=== PATIENT | female | born 1980 | race Caucasian/White ===

== ENCOUNTER 2017-09-22 09:40 | Observation (INO) | payer BC, OTHER ==
[2017-09-22 09:47] VITALS: BMI 25.6
--- NOTE | 2017-09-22 09:53 | PDOC ---
Attending Attestation - Physicial Exam PE: 09/22/17 11:12 Agree with resident exam. Patient appears uncomfortable. Abdomen is soft, non tender and non distended. + L sided CVA tederness. - Medical Decision Making 09/22/17 11:18 Pt presents to the ED complaining of L flank pain along with severe nausea and vomiting. Differential includes renal stone, less likely pyelonephritis, less likely muscular pain, less likely diverticulitis or ectopic . Will check labs and give Iv nausea and pain control. Will check labs and CT abdomen pelvis to rule out nephrolithiasis. <Tiesha Smith - Last Filed: 09/22/17 11:12> - HPI HPI: 09/22/17 10:44 The patient is a 37 year old female with no significant PMH presenting with left sided flank pain and multiple episodes of nonbloody, nonbilious vomit since 5AM this morning. Patient describes the left sided flank pain as sudden onset, sharp, with radiation to the front of her abdomen. The patient denies similar symptoms in the past. Patient denies history of kidney stones. Patient denies fever, chills, diarrhea and constipation. Denies dysuria, frequency, urgency and hematuria. Allergies: fish, oranges, mushrooms, peanuts Past surgical history: None reported. Social history: No reported alcohol, drug, or cigarette use. PCP: Dr. Reynaga - Medical Decision Making 09/22/17 16:40 Imaging: Spiral-renal stone CT Reported by: Dr. Romano Impression: 5 mm obstructing stone at the left ureterovesical junction resulting in mild left renal hydrouteronephrosis. No gross renal stone is identified bilaterally. <Nguyen Roe - Last Filed: 09/22/17 16:41>
[2017-09-22] MEDS ORDERED: morphine CARPU-JECT 4 MG/1 ML DISP.SYRIN IVPUSH ONE ×4 (09:59→17:35)
[2017-09-22] MEDS ORDERED: KETOROLAC TROMETHAMINE 30 MG/1 ML VIAL IVPUSH ONE (09:59)
[2017-09-22] MEDS ORDERED: ONDANSETRON 4 MG/2 ML VIAL IVPUSH ONE ×2 (09:59→10:39)
[2017-09-22] MEDS ORDERED: morphine SULFATE 4 MG/ML VIAL ONE ×4 (10:00→17:40)
[2017-09-22] MEDS ORDERED: KETOROLAC TROMETHAMINE 30 MG/1 ML VIAL ONE (10:01)
[2017-09-22] MEDS ORDERED: ONDANSETRON 4 MG/2 ML VIAL ONE ×2 (10:01→10:42)
[2017-09-22 10:21] LABS: HEMATOCRIT 38.1 % (32.4-45.2); HEMOGLOBIN 12.9 GM/dL (10.7-15.3); MCH 29.3 pg (25.7-33.7); MCHC 33.8 g/dl (32.0-36.0); MEAN CELL VOLUME 86.7 fl (80-96); MEAN PLT VOLUME 8.9 fl (7.5-11.1); PLATELET COUNT 316 K/MM3 (134-434); RBC 4.39 M/mm3 (3.60-5.2); RDW 13.4 % (11.6-15.6); WHITE BLOOD COUNT 9.4 K/mm3 (4.0-10.0)
[2017-09-22 11:03] LABS: ALBUMIN 4.1 g/dl (3.4-5.0); ALK PHOS 78 U/L (45-117); ANION GAP 10 (8-16); BILIRUBIN,TOTAL 0.6 mg/dL (0.2-1.0); BLOOD UREA NITROGEN 19 mg/dL (7-18); CALCIUM 9.1 mg/dL (8.5-10.1); CHLORIDE 104 mmol/L (98-107); CO2 25 mmol/L (21-32); CREATININE 0.8 mg/dL (0.55-1.02); GLUCOSE,RANDOM 138 mg/dL (74-106); POTASSIUM 4.1 mmol/L (3.5-5.1); SGOT/AST 16 U/L (15-37); SGPT/ALT 28 U/L (12-78); SODIUM 139 mmol/L (136-145); TOT PROT 7.5 g/dl (6.4-8.2)
--- NOTE | 2017-09-22 11:14 | PDOC ---
History of Present Illness <Tiesha Smith - Last Filed: 09/22/17 13:41> - General History Source: Patient Exam Limitations: No Limitations - History of Present Illness Initial Comments: 09/22/17 11:04 Patient is a 37F with history of bilateral tubal ligation 1 year ago here today complaining of sudden onset left sided flank pain with associated nausea, vomiting. Patient denies history of kidney stones. Denies dysuria and blood in urine. Last bowel movement yesterday. Patient states that last bowel movement was yesterday. Denies fevers, chills. Last menstrual period 09/06. Patient states that she just can't get comfortable. <Gomez Herrera - Last Filed: 09/22/17 19:34> - General Chief Complaint: Pain Stated Complaint: ABD PAIN Time Seen by Provider: 09/22/17 09:49 Past History <Tiesha Smith - Last Filed: 09/22/17 13:41> - Past Medical History Asthma: No Cancer: No Cardiac Disorders: No COPD: No DVT: No Diabetes: No HTN: Yes (PREECLAMPSIA WITH PREVIOUS ) Seizures: No Thyroid Disease: No - Surgical History Abdominal Surgery: Yes (tubal ligation) - Reproductive History (#): 1 Para: 2 Cervical CA: No Dysfunctional Uterine Bleeding: No Ectopic : No Endometrial CA: No Polycystic Ovaries: No Therapeutic (s) & number: No Tubal Ligation: No Spontaneous : 0 - Suicide/Smoking/Psychosocial Hx Smoking Status: No Smoking History: Never smoked Have you smoked in the past 12 months: No Number of Cigarettes Smoked Daily: 0 Information on smoking cessation initiated: No Hx Alcohol Use: No Drug/Substance Use Hx: No Substance Use Type: None Hx Substance Use Treatment: No <Gomez Herrera - Last Filed: 09/22/17 19:34> - Past Medical History Allergies/Adverse Reactions: Allergies Allergy/AdvReac Type Severity Reaction Status Date / Time fish derived Allergy Unknown Itching Verified 09/22/17 09:43 ORANGES Allergy Severe Difficulty Uncoded 09/22/17 09:43 Breathing mushrooms Allergy Mild Rash Uncoded 09/22/17 09:43 peanuts AdvReac Unknown Itching Uncoded 09/22/17 09:43 Home Medications: Ambulatory Orders NK [No Known Home Medication] 09/22/17 Review of Systems - Review of Systems Comments:: 09/22/17 11:06 GENERAL/CONSTITUTIONAL: No fever or chills. No weakness. HEAD, EYES, EARS, NOSE AND THROAT: No change in vision. No sore throat. CARDIOVASCULAR: No chest pain or shortness of breath RESPIRATORY: No cough, wheezing, or hemoptysis. GASTROINTESTINAL: +nausea, +vomiting. Negative diarrhea or constipation. GENITOURINARY: No dysuria, frequency, or change in urination. MUSCULOSKELETAL: No joint or muscle swelling or pain. No neck or back pain. SKIN: No rash NEUROLOGIC: No headache, vertigo, loss of consciousness, or change in strength/ sensation. ENDOCRINE: No increased thirst. No abnormal weight change HEMATOLOGIC/LYMPHATIC: No anemia, easy bleeding, or history of blood clots. ALLERGIC/IMMUNOLOGIC: No hives or skin allergy. <Gomez Herrera - Last Filed: 09/22/17 19:34> *Physical Exam - Vital Signs Last Vital Signs Temp Pulse Resp BP Pulse Ox 98.2 F 54 L 17 117/71 100 09/22/17 12:37 09/22/17 12:37 09/22/17 12:37 09/22/17 12:37 09/22/17 12:37 <Tiesha Smith - Last Filed: 09/22/17 13:41> - Vital Signs Last Vital Signs Temp Pulse Resp BP Pulse Ox 97.6 F 52 L 18 114/56 100 09/22/17 09:45 09/22/17 09:45 09/22/17 09:45 09/22/17 09:45 09/22/17 09:45 - Physical Exam Comments: 09/22/17 11:08 GENERAL: Awake, alert, and fully oriented, in acute distress, rolling in bed HEAD: No signs of trauma, normocephalic, atraumatic EYES: PERRLA, EOMI, sclera anicteric, conjunctiva clear ENT: Auricles normal inspection, hearing grossly normal, nares patent, oropharynx clear without exudates. Moist mucosa NECK: Normal ROM, supple, no lymphadenopathy, JVD, or masses LUNGS: No distress, speaks full sentences, clear to auscultation bilaterally HEART: Regular rate and rhythm, normal S1 and S2, no murmurs, rubs or gallops, peripheral pulses normal and equal bilaterally. ABDOMEN: +left sided CVA tenderness, normoactive bowel sounds. No guarding, no rebound. No masses EXTREMITIES: Normal inspection, Normal range of motion, no edema. No clubbing or cyanosis. NEUROLOGICAL: Cranial nerves II through XII grossly intact. Normal speech, no focal sensorimotor deficits SKIN: Warm, Dry, normal turgor, no rashes or lesions noted. <Gomez Herrera - Last Filed: 09/22/17 19:34> ED Treatment Course - LABORATORY CBC & Chemistry Diagram: 09/22/17 10:11 09/22/17 10:11 - ADDITIONAL ORDERS Additional order review: Laboratory Results 09/22/17 09/22/17 09/22/17 12:30 10:11 10:11 Sodium 139 Potassium 4.1 Chloride 104 Carbon Dioxide 25 Anion Gap 10 BUN 19 H Creatinine 0.8 Creat Clearance w eGFR > 60 Random Glucose 138 H Calcium 9.1 Total Bilirubin 0.6 AST 16 ALT 28 Alkaline Phosphatase 78 Total Protein 7.5 Albumin 4.1 Serum , Qual Negative Urine Color Yellow Urine Appearance Slcloudy Urine pH 5.0 Ur Specific [place] 1.027 Urine Protein Negative Urine Glucose (UA) Negative Urine Ketones 2+ H Urine Blood Negative Urine Nitrite Negative Urine Bilirubin Negative Urine Urobilinogen Negative Ur Leukocyte Esterase Negative 09/22/17 10:11 RBC 4.39 MCV 86.7 MCHC 33.8 RDW 13.4 D MPV 8.9 - Medications Given in the ED: ED Medications Discontinued Medications Generic Name Dose Route Start Last Admin Trade Name Kemq PRN Reason Stop Dose Admin Ketorolac Tromethamine 30 mg 09/22/17 09:59 09/22/17 10:17 Toradol Injection - IVPUSH 09/22/17 10:00 30 mg ONCE ONE Administration Morphine Sulfate 4 mg 09/22/17 09:59 09/22/17 10:16 Morphine Injection - IVPUSH 09/22/17 10:00 4 mg ONCE ONE Administration Morphine Sulfate 4 mg 09/22/17 10:39 09/22/17 10:51 Morphine Injection - IVPUSH 09/22/17 10:40 4 mg ONCE ONE Administration Morphine Sulfate 4 mg 09/22/17 12:51 09/22/17 13:01 Morphine Injection - IVPUSH 09/22/17 12:52 4 mg ONCE ONE Administration Ondansetron HCl 4 mg 09/22/17 09:59 09/22/17 10:17 Zofran Injection IVPUSH 09/22/17 10:00 4 mg ONCE ONE Administration Ondansetron HCl 4 mg 09/22/17 10:39 09/22/17 10:51 Zofran Injection IVPUSH 09/22/17 10:40 4 mg ONCE ONE Administration Oxycodone/Acetaminophen 1 combo 09/22/17 12:56 09/22/17 13:02 Percocet 5/325 - PO 09/22/17 12:57 Not Given ONCE ONE <Tiesha Smith - Last Filed: 09/22/17 13:41> - LABORATORY CBC & Chemistry Diagram: 09/22/17 10:11 09/22/17 10:11 - ADDITIONAL ORDERS Additional order review: Laboratory Results 09/22/17 10:11 Serum , Qual Negative 09/22/17 10:11 RBC 4.39 MCV 86.7 MCHC 33.8 RDW 13.4 D MPV 8.9 - Medications Given in the ED: ED Medications Discontinued Medications Generic Name Dose Route Start Last Admin Trade Name Freq PRN Reason Stop Dose Admin Ketorolac Tromethamine 30 mg 09/22/17 09:59 09/22/17 10:17 Toradol Injection - IVPUSH 09/22/17 10:00 30 mg ONCE ONE Administration Morphine Sulfate 4 mg 09/22/17 09:59 09/22/17 10:16 Morphine Injection - IVPUSH 09/22/17 10:00 4 mg ONCE ONE Administration Morphine Sulfate 4 mg 09/22/17 10:39 09/22/17 10:51 Morphine Injection - IVPUSH 09/22/17 10:40 4 mg ONCE ONE Administration Ondansetron HCl 4 mg 09/22/17 09:59 09/22/17 10:17 Zofran Injection IVPUSH 09/22/17 10:00 4 mg ONCE ONE Administration Ondansetron HCl 4 mg 09/22/17 10:39 09/22/17 10:51 Zofran Injection IVPUSH 09/22/17 10:40 4 mg ONCE ONE Administration <Gomez Herrera - Last Filed: 09/22/17 19:34> Medical Decision Making - Medical Decision Making 09/22/17 11:14 Patient is a 37F with history of BTL here today with flank pain. Exam and history consistent with kidney stone. Vital signs normal and stable. Will evaluate with cbc, cmp, ua/uc, spiral ct. Given morphine, zofran and toradol. 09/22/17 13:33 Laboratory Tests 09/22/17 09/22/17 09/22/17 10:11 10:11 10:11 WBC 9.4 Hgb 12.9 Plt Count 316 D BUN 19 H Creatinine 0.8 Serum , Qual Negative Urine Ketones Urine Nitrite Ur Leukocyte Esterase 09/22/17 12:30 WBC Hgb Plt Count BUN Creatinine Serum , Qual Urine Ketones 2+ H Urine Nitrite Negative Ur Leukocyte Esterase Negative CBC normal. CMP reassuring. UA shows ketones no blood. CT shows 5mm obstructing stone. Admitted for pain control to obs. <Gomez Herrera - Last Filed: 09/22/17 19:34> *DC/Admit/Observation/Transfer - Discharge Dispostion Decision to Admit order: Yes <Tiesha Smith - Last Filed: 09/22/17 13:41> <Gomez Herrera - Last Filed: 09/22/17 19:34> Diagnosis at time of Disposition: Renal stone - Discharge Dispostion Condition at time of disposition: Good
[2017-09-22 12:50] LABS: URINE APPEARANCE SLCLOUDY; URINE BILIRUBIN NEGATIVE (<2.0 mg/dL); URINE COLOR YELLOW; URINE GLUCOSE (UA) NEGATIVE (NEGATIVE); URINE KETONE 2+ (NEGATIVE); URINE LEUK ESTERASE NEGATIVE (NEGATIVE); URINE NITRITE NEGATIVE (NEGATIVE); URINE PROTEIN NEGATIVE (NEGATIVE); URINE UROBILINOGEN NEGATIVE mg/dL (0.2-1.0)
[2017-09-22] MEDS ORDERED: MORPHINE SULFATE 2 MG/ML VIAL IVPUSH PRN (18:48)
[2017-09-22] MEDS: SODIUM CHLORIDE 1,000 ML IV SCH (19:35)
--- NOTE | 2017-09-22 20:30 | HP ---
CHIEF COMPLAINT: Left Flank Pain, Nausea and Vomiting PCP: Dr. Reynaga HISTORY OF PRESENT ILLNESS: 37 y/o young woman with no significant medical history. Who presents to the ED with L- flank pain, N/V x today. Patient reports the pain started in her L- flank then radiated to her abdomen and down her left leg. She describes the pain as " severe back labor". She reports taking Motrin with no relief. Patient denies fever, chills, SOB, CP, palpitations, diarrhea, constipation, dysuria ER course was notable for: (1) spiral CT- 5mm obstructing stone in L- UVJ (2) UA- +2 ketones (3) Recent Travel: None PAST MEDICAL HISTORY: See HPI PAST SURGICAL HISTORY: C- Section x2 Tubal Ligation Social History: Smoking: Never Alcohol: Denies Drugs: Denies Family History: Father:Renal Calculi Sister: Renal Calculi Allergies fish derived Allergy (Unknown, Verified 09/22/17 09:43) Itching PATIENT STATES THAT SHE IS NOT AWARE OF WHAT THE REACTION WOULD BE WITH THIS FISH, STATES THAT IT IS SOME TYPE OF EXOTIC FISH AND SHE WAS ONLY MADE AWARE OF THE ALLERGY THROUGH ALLERGY TESTING ORANGES Allergy (Severe, Uncoded 09/22/17 09:43) Difficulty Breathing PATIENT STATES THAT THIS IS AN AIR BORN ALLERGY AND THAT HER THROAT CLOSES mushrooms Allergy (Mild, Uncoded 09/22/17 09:43) Rash peanuts Adverse Reaction (Unknown, Uncoded 09/22/17 09:43) Itching PATIENT STATES THAT SHE REINTRODUCED PEANUTS TO HER DIET A FEW YEARS AGO AND HAS NOT HAD ANY FURTHER REACTIONS HOME MEDICATIONS: Home Medications Medication Instructions Recorded NK [No Known Home Medication] 09/22/17 REVIEW OF SYSTEMS CONSTITUTIONAL: loss of appetite, Absent: fever, chills, diaphoresis, generalized weakness, malaise, weight change HEENT: Absent: rhinorrhea, nasal congestion, throat pain, throat swelling, difficulty swallowing, mouth swelling, ear pain, eye pain, visual changes CARDIOVASCULAR: Absent: chest pain, syncope, palpitations, irregular heart rate, lightheadedness , peripheral edema RESPIRATORY: Absent: cough, shortness of breath, dyspnea with exertion, orthopnea, wheezing, stridor, hemoptysis GASTROINTESTINAL: abdominal pain, nausea, vomiting Absent: abdominal distension,diarrhea, constipation, melena, hematochezia GENITOURINARY: flank pain, Absent: dysuria, frequency, urgency, hesitancy, hematuria, genital pain MUSCULOSKELETAL: Absent: myalgia, arthralgia, joint swelling, back pain, neck pain SKIN: Absent: rash, itching, pallor HEMATOLOGIC/IMMUNOLOGIC: Absent: easy bleeding, easy bruising, lymphadenopathy, frequent infections ENDOCRINE: Absent: unexplained weight gain, unexplained weight loss, heat intolerance, cold intolerance NEUROLOGIC: Absent: headache, focal weakness or paresthesias, dizziness, unsteady gait, seizure, mental status changes, bladder or bowel incontinence PSYCHIATRIC: Absent: anxiety, depression, suicidal or homicidal ideation, hallucinations. PHYSICAL EXAMINATION Vital Signs - 24 hr 09/22/17 09/22/17 09/22/17 09:45 12:37 16:42 Temperature 97.6 F 98.2 F 97.9 F Pulse Rate 52 L Pulse Rate [ 58 L Left] Pulse Rate [ 54 L Right Radial] Respiratory 18 17 18 Rate Blood Pressure 114/56 Blood Pressure 117/71 [Left Arm] Blood Pressure 101/70 [Right Arm] O2 Sat by Pulse 100 100 98 Oximetry (%) 09/22/17 09/22/17 18:33 19:44 Temperature 98.1 F Pulse Rate 52 L Pulse Rate [ Left] Pulse Rate [ Right Radial] Respiratory 18 Rate Blood Pressure 133/75 Blood Pressure [Left Arm] Blood Pressure [Right Arm] O2 Sat by Pulse 98 Oximetry (%) GENERAL: Awake, alert, and fully oriented, in no acute distress. HEAD: Normal with no signs of trauma. EYES: Pupils equal, round and reactive to light, extraocular movements intact, sclera anicteric, conjunctiva clear. No lid lag. EARS, NOSE, THROAT: Dry mucous membranes. Ears normal, nares patent, oropharynx clear without exudates. NECK: Normal range of motion, supple without lymphadenopathy, JVD, or masses. LUNGS: Breath sounds equal, clear to auscultation bilaterally. No wheezes, and no crackles. No accessory muscle use. HEART: Regular rate and rhythm, normal S1 and S2 without murmur, rub or gallop. ABDOMEN: RLQ/LLQ tenderness. Soft, not distended, normoactive bowel sounds, no guarding, no rebound, no masses. No hepatomegaly or splenomegaly. MUSCULOSKELETAL:+ Left CVA tenderness. Normal range of motion at all joints. No bony deformities or tenderness. No R- CVA Tenderness. UPPER EXTREMITIES: 2+ pulses, warm, well-perfused. No cyanosis. No clubbing. No peripheral edema. LOWER EXTREMITIES: 2+ pulses, warm, well-perfused. No calf tenderness. No peripheral edema. NEUROLOGICAL: Cranial nerves II-XII intact. Normal speech. Normal gait. PSYCHIATRIC: Cooperative. Good eye contact. Appropriate mood and affect. SKIN: Warm, dry, normal turgor, no rashes or lesions noted, normal capillary refill. Laboratory Results - last 24 hr 09/22/17 09/22/17 09/22/17 10:11 10:11 10:11 WBC 9.4 RBC 4.39 Hgb 12.9 Hct 38.1 D MCV 86.7 MCH 29.3 MCHC 33.8 RDW 13.4 D Plt Count 316 D MPV 8.9 Sodium 139 Potassium 4.1 Chloride 104 Carbon Dioxide 25 Anion Gap 10 BUN 19 H Creatinine 0.8 Creat Clearance w eGFR > 60 Random Glucose 138 H Calcium 9.1 Total Bilirubin 0.6 AST 16 ALT 28 Alkaline Phosphatase 78 Total Protein 7.5 Albumin 4.1 Serum , Qual Negative Urine Color Urine Appearance Urine pH Ur Specific [place] Urine Protein Urine Glucose (UA) Urine Ketones Urine Blood Urine Nitrite Urine Bilirubin Urine Urobilinogen Ur Leukocyte Esterase 09/22/17 12:30 WBC RBC Hgb Hct MCV MCH MCHC RDW Plt Count MPV Sodium Potassium Chloride Carbon Dioxide Anion Gap BUN Creatinine Creat Clearance w eGFR Random Glucose Calcium Total Bilirubin AST ALT Alkaline Phosphatase Total Protein Albumin Serum , Qual Urine Color Yellow Urine Appearance Slcloudy Urine pH 5.0 Ur Specific [place] 1.027 Urine Protein Negative Urine Glucose (UA) Negative Urine Ketones 2+ H Urine Blood Negative Urine Nitrite Negative Urine Bilirubin Negative Urine Urobilinogen Negative Ur Leukocyte Esterase Negative ASSESSMENT/PLAN: 37 y/o Placed in Observation for L- Flank Pain, Obstructing Renal Stone for evaluation of their emergent condition. Plan: FEN -NS@83ml/hr - Replete lytes prn - Clear Liquid Diet DVT ppx - OOB - SCDs - Consider AC if LOS > 48hrs Code Status: Full Code Dispo: Observation Problem List - Problem (1) Lt flank pain Assessment/Plan: - Likely secondary to renal stone - Spiral CT- 5mm obstructing stone L UVJ, mild left renal hydrouteronephrosis - UA- +2 ketones - No leukocytosis, no neutrophilia - Appreciate Urology consult - Continue IVF - Morphine Sulfate prn - Repeat CBC, BMP in am - Monitor vitals Code(s): R10.9 - UNSPECIFIED ABDOMINAL PAIN (2) Renal stone Assessment/Plan: - See above Code(s): N20.0 - CALCULUS OF KIDNEY (3) Nausea & vomiting Assessment/Plan: - Likely secondary to renal stone - IVF - Zofran prn - Monitor BMP - Monitor vitals - UA +ketones Code(s): R11.2 - NAUSEA WITH VOMITING, UNSPECIFIED Visit type - Emergency Visit Emergency Visit: Yes ED Registration Date: 09/22/17 Care time: The patient presented to the Emergency Department on the above date and was hospitalized for further evaluation of their emergent condition. - New Patient This patient is new to me today: Yes Date on this admission: 09/22/17 - Critical Care Critical Care patient: No Hospitalist Screening - Colonoscopy Questionnaire Colonoscopy Questionnaire: Colonoscopy Questionnaire - Patient: 50 - 75 years old and never had a screening colonoscopy: No History of colon or rectal polyps, or CA: No History of IBD, Crohn's disease or UC: No History of abdominal radiation therapy as a child: No - Relative: 1 with colon or rectal CA, or polyps at age 60 or younger: No Colon or rectal CA diagnosed at age 45 or younger: No Multiple relatives with colon or rectal CA: No - Outcome: Screening Result: Negative Screen
[2017-09-23 08:38] LABS: HEMATOCRIT 34.2 % (32.4-45.2); HEMOGLOBIN 11.5 GM/dL (10.7-15.3); MCH 29.4 pg (25.7-33.7); MCHC 33.7 g/dl (32.0-36.0); MEAN CELL VOLUME 87.1 fl (80-96); MEAN PLT VOLUME 9.3 fl (7.5-11.1); PLATELET COUNT 258 K/MM3 (134-434); RBC 3.93 M/mm3 (3.60-5.2); RDW 13.4 % (11.6-15.6); WHITE BLOOD COUNT 8.1 K/mm3 (4.0-10.0)
[2017-09-23] MEDS: SODIUM CHLORIDE 1,000 ML IV SCH (08:58)
[2017-09-23 09:23] LABS: ALBUMIN 3.2 g/dl (3.4-5.0); ANION GAP 7 (8-16); BLOOD UREA NITROGEN 14 mg/dL (7-18); CALCIUM 8.2 mg/dL (8.5-10.1); CHLORIDE 110 mmol/L (98-107); CO2 28 mmol/L (21-32); CREATININE 0.5 mg/dL (0.55-1.02); GLUCOSE,RANDOM 83 mg/dL (74-106); POTASSIUM 4.2 mmol/L (3.5-5.1); SGOT/AST 14 U/L (15-37); SGPT/ALT 21 U/L (12-78); SODIUM 145 mmol/L (136-145)
[2017-09-23 09:24] LABS: ALK PHOS 65 U/L (45-117); BILIRUBIN,TOTAL 0.4 mg/dL (0.2-1.0); TOT PROT 6.1 g/dl (6.4-8.2)
--- NOTE | 2017-09-23 09:38 | PN ---
Progress Note, Physician Chief Complaint: still C/O flank pain History of Present Illness: 37 yrs old healthy F admitted with Left renal colic - Current Medication List Current Medications: Active Medications Sodium Chloride (Normal Saline -) 1,000 mls @ 83 mls/hr IV ASDIR WILL Last Admin: 09/23/17 08:58 Dose: 83 mls/hr Morphine Sulfate (Morphine Sulfate) 2 mg IVPUSH Q4H PRN PRN Reason: PAIN LEVEL 4 - 6 Last Admin: 09/22/17 19:02 Dose: 2 mg - Objective Vital Signs: Vital Signs Temperature 97.6 F 09/23/17 06:00 Pulse Rate 56 L 09/23/17 06:00 Respiratory Rate 18 09/23/17 06:00 Blood Pressure 106/56 09/23/17 06:00 O2 Sat by Pulse Oximetry (%) 98 09/23/17 02:16 Constitutional: Yes: Well Nourished, No Distress Eyes: Yes: Conjunctiva Clear, EOM Intact HENT: Yes: Atraumatic, Normocephalic Neck: Yes: Supple, Trachea Midline. No: Decreased ROM, Lymphadenopathy Cardiovascular: Yes: Regular Rate and Rhythm, S1, S2. No: JVD, Gallop, Murmur Respiratory: Yes: Regular, CTA Bilaterally Gastrointestinal: Yes: Normal Bowel Sounds, Soft Genitourinary: No: CVA Tenderness - Left, CVA Tenderness - Right, Hematuria Edema: No Peripheral Pulses: Left Doralis Pedis: 2+, Right Dorsalis Pedis: 2+ Neurological: Yes: WNL, Alert, Oriented Labs: CBC, BMP 09/23/17 07:14 09/23/17 07:14 - ....Imaging Cat Scan: Report Reviewed (Left 5 mm stone at uretro Vesiclre Junction with hydronephrosis) Problem List - Problems (1) Renal colic on left side Assessment/Plan: Due to obstructed stone pain control IV Hydration, consult, Flomax Code(s): N23 - UNSPECIFIED RENAL COLIC (2) Hydronephrosis, left Assessment/Plan: Due to Obstructed calculi at Left UreteroVesicle Junction Code(s): N13.30 - UNSPECIFIED HYDRONEPHROSIS (3) Nausea & vomiting Assessment/Plan: Resolved due to renalcolic Code(s): R11.2 - NAUSEA WITH VOMITING, UNSPECIFIED (4) Bradycardia Assessment/Plan: Asymptomatic excellent Et no c/o syncope or presyncope symptoms will F/U EKG Code(s): R00.1 - BRADYCARDIA, UNSPECIFIED
--- NOTE | 2017-09-23 12:31 | CONSULT ---
Consult - text type - Consultation Consultation Note: 37 yo female w 5mm left renal calculus and hydro admitted for pain control No signs of SIRS Pt comfortable now discussed tx options if does not pass lithotripsy vs ureteroscopy Will follow Will need more urgent tx if fever N?V and worsening pain
[2017-09-23] MEDS ORDERED: TAMSULOSIN HCL 0.4 MG CAP PO ONE (12:58)
--- NOTE | 2017-09-23 18:58 | EKG ---
Test Reason : Blood Pressure : / mmHG Vent. Rate : 073 BPM Atrial Rate : 073 BPM P-R Int : 144 ms QRS Dur : 104 ms QT Int : 404 ms P-R-T Axes : 058 053 045 degrees QTc Int : 445 ms NORMAL SINUS RHYTHM WITH SINUS ARRHYTHMIA NORMAL ECG NO PREVIOUS ECGS AVAILABLE Confirmed by MD ANASTACIA, RAYA ([id number]) on 09/23/2017 6:57:31 PM Referred By: Hung INIGUEZ Confirmed By:RAYA GALAVIZ MD
[2017-09-24 09:00] LABS: BASO % 0.3 % (0-2.0); EOS % 2.4 % (0-4.5); HEMATOCRIT 35.3 % (32.4-45.2); HEMOGLOBIN 12.1 GM/dL (10.7-15.3); LYMPH % 41.1 % (8-40); MCH 29.6 pg (25.7-33.7); MCHC 34.1 g/dl (32.0-36.0); MEAN CELL VOLUME 86.8 fl (80-96); MEAN PLT VOLUME 9.6 fl (7.5-11.1); MONO % 8.4 % (3.8-10.2); NEUT % 47.8 % (42.8-82.8); PLATELET COUNT 264 K/MM3 (134-434); RBC 4.07 M/mm3 (3.60-5.2); RDW 13.6 % (11.6-15.6); WHITE BLOOD COUNT 5.6 K/mm3 (4.0-10.0)
[2017-09-24 09:33] LABS: CHLORIDE 105 mmol/L (98-107); POTASSIUM 4.4 mmol/L (3.5-5.1); SODIUM 140 mmol/L (136-145)
--- NOTE | 2017-09-24 10:09 | PN ---
Progress Note, Physician Chief Complaint: Improved denies any nausea or vomiting History of Present Illness: 37 yrs old healthy F admitted with Left renal colic - Current Medication List Current Medications: Active Medications Morphine Sulfate (Morphine Sulfate) 2 mg IVPUSH Q4H PRN PRN Reason: PAIN LEVEL 4 - 6 Last Admin: 09/22/17 19:02 Dose: 2 mg - Objective Vital Signs: Vital Signs Temperature 97.6 F 09/24/17 07:00 Pulse Rate 55 L 09/24/17 07:00 Respiratory Rate 18 09/24/17 07:00 Blood Pressure 97/58 09/24/17 07:00 O2 Sat by Pulse Oximetry (%) 99 09/23/17 23:39 Constitutional: Yes: Well Nourished, No Distress HEENT: Atraumatic, Normocephalic Supple, Trachea Midline. No: Decreased ROM, Lymphadenopathy,Conjunctiva Clear, EOM Intact Cardiovascular: Regular Rate and Rhythm, S1, S2. No: JVD, Gallop, Murmur Respiratory: Regular, CTA Bilaterally Gastrointestinal: Normal Bowel Sounds, Soft Genitourinary: No: CVA Tenderness - Left, CVA Tenderness - Right, Hematuria LE : No edema feet, Peripheral Pulses: Left Doralis Pedis: 2+, Right Dorsalis Pedis: 2+ Neurological: WNL, Alert, Oriented Labs: CBC, BMP 09/24/17 08:00 Problem List - Problems (1) Renal colic on left side Assessment/Plan: Due to obstructed stone pain control IV Hydration, consult, Flomax Code(s): N23 - UNSPECIFIED RENAL COLIC (2) Hydronephrosis, left Assessment/Plan: Due to Obstructed calculi at Left UreteroVesicle Junction, will f/u renal ultrasound Code(s): N13.30 - UNSPECIFIED HYDRONEPHROSIS (3) Nausea & vomiting Assessment/Plan: Resolved due to renalcolic Code(s): R11.2 - NAUSEA WITH VOMITING, UNSPECIFIED (4) Bradycardia Assessment/Plan: Resolved most likely vagogenic due to pain EKG NSr at 73 Code(s): R00.1 - BRADYCARDIA, UNSPECIFIED
[2017-09-24 10:12] LABS: ANION GAP 6 (8-16); BLOOD UREA NITROGEN 9 mg/dL (7-18); CALCIUM 8.4 mg/dL (8.5-10.1); CO2 29 mmol/L (21-32); CREATININE 0.5 mg/dL (0.55-1.02); GLUCOSE,RANDOM 84 mg/dL (74-106); URIC ACID 3.7 mg/dL (2.6-7.2)
[2017-09-24] MEDS ORDERED: ACETAMINOPHEN 325 MG TABLET (FP) PO PRN (14:12)
[2017-09-24] MEDS ORDERED: PT OWN MED DRAWER 7, Y5N ONE (19:53)
--- NOTE | 2017-09-25 18:28 | DS ---
Physical Examination Vital Signs: Vital Signs Temperature 98.2 F 09/25/17 16:30 Pulse Rate 66 09/25/17 16:30 Respiratory Rate 20 09/25/17 16:30 Blood Pressure 112/75 09/25/17 16:30 O2 Sat by Pulse Oximetry (%) 99 09/25/17 10:00 Findings/Remarks: 37 y/o young woman with no significant medical history. Who presents to the ED with L- flank pain, N/V x one day. Patient reports the pain started in her L- flank then radiated to her abdomen and down her left leg. She describes the pain as " severe back labor". She reports taking Motrin with no relief. Patient denied fever, chills, SOB, CP, palpitations, diarrhea, constipation, dysuria ER course was notable for: (1) spiral CT- 5mm obstructing stone in L- UVJ (2) UA- +2 ketones (3) patient was admitted treated with IV fluids / pain management and seen by over the weekend -- she has remained with mild pain for last 36hrs -toleration PO well / no further nausea or vomiting She has been instructed to continue with increased PO fluids and strain all urine. She will be d/c home with follow up for possible lithotripsy. Instructed to call office if any changes to current condition. Constitutional: Yes: Well Nourished, No Distress, Calm Eyes: Yes: WNL, Conjunctiva Clear, EOM Intact HENT: Yes: Atraumatic, Normocephalic Neck: Yes: Supple, Trachea Midline Cardiovascular: Yes: Regular Rate and Rhythm Respiratory: Yes: Regular, CTA Bilaterally Gastrointestinal: Yes: Normal Bowel Sounds, Soft. No: Tenderness, Tenderness, Rebound ...Rectal Exam: Yes: Deferred Renal/: Yes: CVA Tenderness - Left (mild). No: Bladder Distention, Hematuria , Urethral Discharge, Vaginal Discharge Breast(s): Yes: WNL Musculoskeletal: Yes: Back Pain Extremities: Yes: Amputation Edema: No Peripheral Pulses WNL: Yes Peripheral Pulses: Left Radial: 2+, Right Radial: 2+, Left Doralis Pedis: 2+, Right Dorsalis Pedis: 2+, Left Femoral: 2+, Right Femoral: 2+ Integumentary: Yes: WNL Neurological: Yes: Alert, Oriented ...Motor Strength: WNL Psychiatric: Yes: Alert, Oriented Labs: CBC, BMP 09/24/17 08:00 09/24/17 08:00 Discharge Summary Reason For Visit: CALCULUS OF KIDNEY Current Active Problems Bradycardia (Acute) Hydronephrosis, left (Acute) Lt flank pain (Acute) Nausea & vomiting (Acute) Renal colic on left side (Acute) Renal stone (Acute) Condition: Improved - Instructions Referrals: Dipti Reynaga MD [Primary Care Provider] - Disposition: HOME - Home Medications Comprehensive Discharge Medication List: Ambulatory Orders NK [No Known Home Medication] 09/22/17
[2017-09-25 19:24] VITALS: BP 124/82; PULSE 73; TEMP 99.1
== END 2017-09-25 19:32 | disposition home or self-care (01) ==
LOC: JER 09:40 → JERBED 13:41 → J5S 17:56
PROVIDERS: ADMIT Family Medicine; ATTEND Family Medicine
PROC: 3E0333Z Introduction of Anti-inflammatory into Peripheral Vein, Percutaneous Approach (ICD-10-PCS; principal; 2017-09-22)
PROC: 3E033NZ Introduction of Analgesics, Hypnotics, Sedatives into Peripheral Vein, Percutaneous Approach (ICD-10-PCS; 2017-09-22)
PROC: 3E0337Z Introduction of Electrolytic and Water Balance Substance into Peripheral Vein, Percutaneous Approach (ICD-10-PCS; 2017-09-22)
DX: N13.2 Hydronephrosis with renal and ureteral calculous obstruction (principal); R11.2 Nausea with vomiting, unspecified; R00.1 Bradycardia, unspecified; Z91.010 Allergy to peanuts; Z91.018 Allergy to other foods
CPT/HCPCS: 36415; 74176; 76775-TC; 80048; 80053; 81003; 84550; 84703; 85025; 85027; 87086; 93005; 93010; 99283-25; G0378; J7030

== ENCOUNTER 2018-03-23 17:55 | Emergency (ER) | payer OTHER ==
--- NOTE | 2018-03-23 18:01 | PDOC ---
Rapid Medical Evaluation Time Seen by Provider: 03/23/18 17:59 Medical Evaluation: Allergies Allergy/AdvReac Type Severity Reaction Status Date / Time fish derived Allergy Unknown Itching Verified 09/22/17 09:43 ORANGES Allergy Severe Difficulty Uncoded 09/22/17 09:43 Breathing mushrooms Allergy Mild Rash Uncoded 09/22/17 09:43 peanuts AdvReac Unknown Itching Uncoded 09/22/17 09:43 03/23/18 17:59 I performed a brief in-person evaluation. Chief complaint: Right flank pain (history of same, last 09/2017, passed on own) Pertinent physical exam findings: Right CVA tenderness, some distress secondary to pain I have ordered the following: UA/culture, urine , CBC, CMP Patient will proceed to the ED for further evaluation. Discharge Disposition - Diagnosis Flank pain - Referrals - Patient Instructions - Post Discharge Activity
[2018-03-23 18:03] VITALS: BP 118/75; PULSE 69; TEMP 98.1; BMI 26.2
[2018-03-23 18:22] LABS: BASO % 0.2 % (0-2.0); EOS % 1.9 % (0-4.5); HEMATOCRIT 38.2 % (32.4-45.2); HEMOGLOBIN 13.2 GM/dL (10.7-15.3); LYMPH % 40.5 % (8-40); MCH 30.2 pg (25.7-33.7); MCHC 34.7 g/dl (32.0-36.0); MEAN CELL VOLUME 87.2 fl (80-96); MEAN PLT VOLUME 8.5 fl (7.5-11.1); NEUT % 49.4 % (42.8-82.8); PLATELET COUNT 298 K/MM3 (134-434); RBC 4.38 M/mm3 (3.60-5.2); RDW 13.4 % (11.6-15.6); WHITE BLOOD COUNT 7.7 K/mm3 (4.0-10.0)
[2018-03-23 18:50] LABS: ALK PHOS 75 U/L (45-117); ANION GAP 5 MMOL/L (8-16); BILIRUBIN,TOTAL 0.3 mg/dL (0.2-1); BLOOD UREA NITROGEN 12 mg/dL (7-18); CALCIUM 9.6 mg/dL (8.5-10.1); CHLORIDE 105 mmol/L (98-107); CO2 29 mmol/L (21-32); CREATININE 0.6 mg/dL (0.55-1.3); GLUCOSE,RANDOM 123 mg/dL (74-106); SGOT/AST 13 U/L (15-37); SGPT/ALT 19 U/L (13-61); SODIUM 139 mmol/L (136-145); TOT PROT 7.6 g/dl (6.4-8.2)
[2018-03-23 19:05] LABS: URINE APPEARANCE CLEAR; URINE BILIRUBIN NEGATIVE (<2.0 mg/dL); URINE COLOR YELLOW; URINE GLUCOSE (UA) NEGATIVE (NEGATIVE); URINE KETONE NEGATIVE (NEGATIVE); URINE LEUK ESTERASE NEGATIVE (NEGATIVE); URINE NITRITE NEGATIVE (NEGATIVE); URINE PROTEIN NEGATIVE (NEGATIVE); URINE UROBILINOGEN NEGATIVE mg/dL (0.2-1.0)
[2018-03-23 19:06] LABS: HCG,QUALITATIVE URINE Negative
[2018-03-23] MEDS ORDERED: ACETAMINOPHEN 1000 MG/100 ML VIAL (NON FORMULARY) IVPB ONE (19:40)
--- NOTE | 2018-03-23 19:40 | PDOC ---
History of Present Illness - General Chief Complaint: Pain, Acute Stated Complaint: BACK PAIN Time Seen by Provider: 03/23/18 17:59 History Source: Patient - History of Present Illness Initial Comments: 03/23/18 19:34 37 yr old woman with hx of renal stones (last episode 09/2017) present with sharp continuous right sided flank pain radiating down to her groin a/w nausea. symptoms intermittently first started 2 weeks ago and started to progressively worsen since Monday with sharp stabbing continuously starting 1pm today. also c/o left upper nonradiating chest pain that feels like cramping occurring at the same time as the right flank pain that started at 6:00pm on her drive to the ED. denies palpitations, vomiting, fevers, dysuria, headache, weightloss, Sister with hx of calcium renal stones, father with renal stones and DM Surghx: 14yrs ago, tubal ligation 14mo ago. Past History - Past Medical History Allergies/Adverse Reactions: Allergies Allergy/AdvReac Type Severity Reaction Status Date / Time fish derived Allergy Unknown Itching Verified 03/23/18 18:00 ORANGES Allergy Severe Difficulty Uncoded 03/23/18 18:00 Breathing mushrooms Allergy Mild Rash Uncoded 03/23/18 18:00 peanuts AdvReac Unknown Itching Uncoded 03/23/18 18:00 Home Medications: Ambulatory Orders Naproxen [Naprosyn -] 500 mg PO BID #10 tablet 03/23/18 Polyethylene Glycol 3350 [Miralax (For Daily Use) -] 17 gm PO DAILY #1 bottle Asthma: No Cancer: No Cardiac Disorders: No COPD: No DVT: No Diabetes: No Disorders: Yes (renal stones) HTN: Yes (PREECLAMPSIA WITH PREVIOUS ) Seizures: No Thyroid Disease: No - Surgical History Abdominal Surgery: Yes (tubal ligation) - Reproductive History (#): 1 Para: 2 Cervical CA: No Dysfunctional Uterine Bleeding: No Ectopic : No Endometrial CA: No Polycystic Ovaries: No Therapeutic (s) & number: No Tubal Ligation: No Spontaneous : 0 - Suicide/Smoking/Psychosocial Hx Smoking Status: No Smoking History: Unknown if ever smoked Have you smoked in the past 12 months: No Number of Cigarettes Smoked Daily: 0 Hx Alcohol Use: No Drug/Substance Use Hx: No Substance Use Type: None Hx Substance Use Treatment: No *Physical Exam - Vital Signs Last Vital Signs Temp Pulse Resp BP Pulse Ox 98.1 F 69 22 H 118/75 100 03/23/18 18:02 03/23/18 18:02 03/23/18 18:02 03/23/18 18:02 03/23/18 18:02 Moderate Sedation - Procedure Monitoring Vital Signs: Procedure Monitoring Vital Signs Temperature 98.1 F 03/23/18 18:02 Pulse Rate 69 03/23/18 18:02 Respiratory Rate 22 H 03/23/18 18:02 Blood Pressure 118/75 03/23/18 18:02 O2 Sat by Pulse Oximetry (%) 100 03/23/18 18:02 ED Treatment Course - LABORATORY CBC & Chemistry Diagram: 03/23/18 18:00 03/23/18 18:00 - ADDITIONAL ORDERS Additional order review: Laboratory Results 03/23/18 03/23/18 18:50 18:00 Sodium 139 Potassium 4.0 Chloride 105 Carbon Dioxide 29 Anion Gap 5 L BUN 12 Creatinine 0.6 Creat Clearance w eGFR > 60 Random Glucose 123 H Calcium 9.6 Total Bilirubin 0.3 AST 13 L ALT 19 Alkaline Phosphatase 75 Total Protein 7.6 Albumin 4.0 Urine Color Yellow Urine Appearance Clear Urine pH 5.0 Ur Specific [place] 1.024 Urine Protein Negative Urine Glucose (UA) Negative Urine Ketones Negative Urine Blood Negative Urine Nitrite Negative Urine Bilirubin Negative Urine Urobilinogen Negative Ur Leukocyte Esterase Negative Urine HCG, Qual Negative 03/23/18 18:00 RBC 4.38 MCV 87.2 MCHC 34.7 RDW 13.4 MPV 8.5 D Neutrophils % 49.4 Lymphocytes % 40.5 H Monocytes % 8.0 Eosinophils % 1.9 Basophils % 0.2 - RADIOLOGY Radiology Studies Ordered: Category Date Time Status SPIRAL- RENAL-STONE CT [CT] Stat CT Scan 03/23/18 19:33 Ordered Medical Decision Making - Medical Decision Making 03/23/18 21:42 labs and ua normalm check ultrasound and spiral CT to eval for renal stones. imaging negative for uropathy, does show moderate fecal retention. possible that stone may have passed. will dc home with naproxyn, oral hydration and stool softener with outpatient f/ u with PCP. Dr. Reynaga aware of plan to dc pt home if no obstructive uropathy identified. *DC/Admit/Observation/Transfer Diagnosis at time of Disposition: Flank pain - Discharge Dispostion Disposition: HOME Condition at time of disposition: Stable Decision to Admit order: No - Prescriptions Prescriptions: Naproxen [Naprosyn -] 500 mg PO BID #10 tablet Polyethylene Glycol 3350 [Miralax (For Daily Use) -] 17 gm PO DAILY #1 bottle - Referrals Referrals: Dipti Reynaga MD [Primary Care Provider] - - Patient Instructions Printed Discharge Instructions: DI for Kidney Stones, DI for Constipation Additional Instructions: You were evaluated for right sided pain today. The ultrasound and the CT scan did not show any obstructing renal stone. The CT scan did show moderate amount of constipation. Please follow-up with Dr. Reynaga for post-hospital evaluation. You are being discharged with naproxyn for pain control, please take it with food and plenty of water. You can take an [id number] stool softners or laxatives for your constipation. A prescription for naprosyn and miralax has been sent to your preferred pharmacy If you develop any worsening pain, fevers, trouble urinating or any new symptoms please return to the hospital. - Post Discharge Activity
[2018-03-23] MEDS ORDERED: ACETAMINOPHEN INJECTION 100 ML IVPB ONE (19:45)
[2018-03-23] MEDS ORDERED: SODIUM CHLORIDE 1,000 ML IV STA (20:14)
--- NOTE | 2018-03-23 20:17 | PDOC ---
Attending Attestation - HPI HPI: The patient is a 37 year old female, with a significant PMH of renal stones, who presents to the emergency department today complaining of right-sided abdominal pain for 2 weeks. Patient notes that the pain is sharp and constant in nature, radiating from the right side of her abdomen to her right flank and right groin. She reports associated intermittent nausea, bloating, and intestinal burning. Patient notes that she thought it was acid reflux, and tried Pepto Bismol with minimal relief. She states the symptoms began two weeks ago, but have gotten progressively worse in the past 6 days, and became unbearable today. She notes her PCP recommended that she come to the ED if the pain persists. Patient confirms family history of calcium renal stones (sister) , renal stones (father), and DM (father). The patient denies chest pain, shortness of breath, headache and dizziness. Denies fever, chills, vomit, diarrhea and constipation. Denies dysuria, frequency, urgency and hematuria. Allergies: Fish, oranges, mushrooms, peanuts Past surgical history: and tubal ligation Social history: No reported PCP: Dr. Reynaga 03/23/18 20:17 - Physicial Exam PE: GENERAL: Awake, alert, and fully oriented, in no acute distress HEAD: No signs of trauma EYES: PERRLA, EOMI, sclera anicteric, conjunctiva clear ENT: Auricles normal inspection, hearing grossly normal, nares patent. Moist mucosa NECK: Normal ROM, supple, no lymphadenopathy, JVD, or masses ABDOMEN: +RUQ tenderness to palpation. Soft. No guarding, no rebound. No masses EXTREMITIES: Normal range of motion, no edema. No clubbing or cyanosis. No cords, erythema, or tenderness NEUROLOGICAL: Cranial nerves II through XII grossly intact. Normal speech. + Right CVA tenderness. SKIN: Warm, Dry, normal turgor, no rashes or lesions noted. 03/23/18 20:17 - Medical Decision Making EXAM#: TYPE/EXAM: RESULT: [id number] US/ABDOMEN US -LIMITED Right upper quadrant abdomen ultrasound Clinical information: right upper quadrant pain; evaluate liver, right kidney stone Impression: No sonographic evidence of acute pathology. Probable diffuse hepatic steatosis. Reported By: Jose Maria Ortega MD 03/23/18 21:14 EXAM#: TYPE/EXAM: RESULT: [id number] CT/SPIRAL- RENAL-STONE CT Renal stone CT without contrast Clinical information: evaluate for renal stone; right upper quadrant pain Impression: No CT findings of acute pathology are identified. There is no evidence of current urolithiasis or obstructive uropathy. Interval passage/extraction of a small distal left ureteral calculus is noted in comparison to a CT study of 09/22/2017. Diffuse colonic fecal retention is noted which is probably moderate. Reported By: Jose Maria Ortega MD 03/23/18 21:30 Documentation prepared by TREVOR Hernández, acting as medical biller/coder for Real Sterling MD. 03/23/18 21:59 <Sara Moss - Last Filed: 03/23/18 21:59> - Resident Resident Name: Ricardo Moncada - ED Attending Attestation I have performed the following: I have examined & evaluated the patient, The case was reviewed & discussed with the resident, I agree w/resident's findings & plan, Exceptions are as noted - Medical Decision Making 03/23/18 20:16 A portion of this note was documented by scribe services under my direction. I have reviewed the details of the note, within reason, and agree with the documentation with the following case summary and management plan written by me. Patient treated in the ED. Nursing notes are reviewed and incorporated into the medical decision-making. Vital signs reviewed. Peripheral IV access obtained by the nurse, laboratory studies are drawn and sent, reviewed and interpreted by myself. Vital Signs Temp Pulse Resp BP Pulse Ox 98.1 F 69 22 H 118/75 100 03/23/18 18:02 03/23/18 18:02 03/23/18 18:02 03/23/18 18:02 03/23/18 18:02 37-year-old female patient with past medical history of renal stones presents with right flank pain for 2 weeks. Patient endorses right flank pain occasionally quadrant which she thought maybe kidney stones. Denies fevers, chills. Does report nausea but no vomiting. Denies dysuria or hematuria. Lab work reviewed. We'll obtain a spiral CT to rule out renal colic and a right upper quadrant shunt rule out biliary colic. IV fluids and pain control and reassess. 03/23/18 21:24 Ultrasound reviewed. No acute findings. CBC, BMP 03/23/18 18:00 03/23/18 18:00 CMP Sodium 139 mmol/L (136-145) 03/23/18 18:00 Potassium 4.0 mmol/L (3.5-5.1) 03/23/18 18:00 Chloride 105 mmol/L (98-107) 03/23/18 18:00 Carbon Dioxide 29 mmol/L (21-32) 03/23/18 18:00 Anion Gap 5 MMOL/L (8-16) L 03/23/18 18:00 BUN 12 mg/dL (7-18) 03/23/18 18:00 Creatinine 0.6 mg/dL (0.55-1.3) 03/23/18 18:00 Creat Clearance w eGFR > 60 (>60) 03/23/18 18:00 Random Glucose 123 mg/dL (74-106) H 03/23/18 18:00 Calcium 9.6 mg/dL (8.5-10.1) 03/23/18 18:00 Total Bilirubin 0.3 mg/dL (0.2-1) 03/23/18 18:00 AST 13 U/L (15-37) L 03/23/18 18:00 ALT 19 U/L (13-61) 03/23/18 18:00 Alkaline Phosphatase 75 U/L (45-117) 03/23/18 18:00 Total Protein 7.6 g/dl (6.4-8.2) 03/23/18 18:00 Albumin 4.0 g/dl (3.4-5.0) 03/23/18 18:00 03/23/18 22:07 CT scan shows no acute findings. Could she have a passed kidney stone? Either way, the patient feels complete relief. She thinks that she may have passed a stone. Either way, she feels comfortable going home. <Real Sterling - Last Filed: 03/23/18 22:08>
== END 2018-03-23 22:50 | disposition home or self-care (01) ==
LOC: JER 17:55
PROC: 3E0337Z Introduction of Electrolytic and Water Balance Substance into Peripheral Vein, Percutaneous Approach (ICD-10-PCS; principal; 2018-03-23)
PROC: 3E033NZ Introduction of Analgesics, Hypnotics, Sedatives into Peripheral Vein, Percutaneous Approach (ICD-10-PCS; 2018-03-23)
DX: R10.31 Right lower quadrant pain (principal); Z87.442 Personal history of urinary calculi
CPT/HCPCS: 36415; 74176; 76705-TC; 80053; 81003; 84703; 85025; 87086; 99283-25; J0131; J7030